=== PATIENT | male | born 1940 | race Caucasian/White ===

== ENCOUNTER → 2017-01-05 | Outpatient (CLI) | payer MEDICARE, OTHER | END | disposition home or self-care (01) | LOC: PCVCCLINIC 15:50 | PROVIDERS: ATTEND Internal Medicine | DX: I25.10 Atherosclerotic heart disease of native coronary artery without angina pectoris (principal); I48.0 Paroxysmal atrial fibrillation; E78.00 Pure hypercholesterolemia, unspecified; Z98.890 Other specified postprocedural states | CPT/HCPCS: 80061; 93005; G0463 ==

== ENCOUNTER → 2018-01-11 | Outpatient (CLI) | payer MEDICARE, OTHER | END | disposition home or self-care (01) | LOC: PCVCCLINIC 13:20 | DX: I25.10 Atherosclerotic heart disease of native coronary artery without angina pectoris (principal); I48.0 Paroxysmal atrial fibrillation; E78.00 Pure hypercholesterolemia, unspecified; E78.5 Hyperlipidemia, unspecified; Z98.890 Other specified postprocedural states; Z87.891 Personal history of nicotine dependence; Z79.899 Other long term (current) drug therapy; Z79.82 Long term (current) use of aspirin | CPT/HCPCS: 80061; 93005; G0463 ==

== ENCOUNTER → 2018-07-19 | Outpatient (CLI) | payer MEDICARE, OTHER ==
--- NOTE | 2018-07-19 14:34 | PCVCIMAG ---
APPROVED REPORT Study performed: 07/19/2018 13:21:35 EXAM: Comprehensive 2D, Doppler, and color-flow Echocardiogram Patient Location: Echo lab Status: routine BSA: 1.85 HR: 63 bpmBP: 130/70 mmHg Rhythm: Atrial Fibrillation Other Information Study Quality: Adequate 2D Dimensions IVSd: 10.59 (7-11mm) LVDd: 49.27 mm PWd: 9.33 (7-11mm)Ascending Ao: 34.66 (22-36mm) LVDs: 34.57 (25-40mm) Left Atrium: 33.04 (27-40mm) Aortic Root: 33.23 mm LV Single Plane 4CH: 51.33 % LV Single Plane 2CH: 56.81 % Biplane EF: 55.0 % Volumes Left Atrial Volume (Systole) Single Plane 4CH: 41.98 mLSingle Plane 2CH: 82.92 mL LA ESV Index: 34.00 mL/m2 Aortic Valve AoV Peak Lamonte.: 1.30 m/s AO Peak Gr.: 6.86 mmHgLVOT Max P.69 mmHg LVOT Max V: 0.95 m/s Pulmonary Valve PV Peak Lamonte.: 0.88 m/sPV Peak Gr.: 3.09 mmHg Tricuspid Valve TR Peak Lamonte.: 2.37 m/s TR Peak Gr.: 22.51 mmHg Left Ventricle The left ventricle is normal size. There is normal LV segmental wall motion. There is normal left ventricular wall thickness. Left ventricular systolic function is normal. The left ventricular ejection fraction is within the normal range. LVEF is 55-60%. This study is not technically sufficient to allow evaluation of the LV diastolic function due to atrial fibrillation. Right Ventricle The right ventricle is normal size. The right ventricular systolic function is normal. Atria Left atrium is at the upper limits of normal. Right atrium is mildly dilated. Aortic Valve The aortic valve is normal in structure. Mild aortic regurgitation. There is no aortic valvular stenosis. Mitral Valve History of mitral valve repair. Mild to moderate, eccentric mitral regurgitation. No evidence of mitral valve stenosis. Tricuspid Valve The tricuspid valve is normal in structure. Mild tricuspid regurgitation with PAP of 30 mmHg. Pulmonic Valve The pulmonary valve is normal in structure. Mild pulmonic regurgitation. Great Vessels The aortic root is normal in size. IVC is normal in size and collapses >50% with inspiration. Pericardium There is no pericardial effusion. There is no pleural effusion. <Conclusion> The left ventricle is normal size. LVEF is 55-60%. This study is not technically sufficient to allow evaluation of the LV diastolic function due to atrial fibrillation. The right ventricle is normal size. Left atrium is at the upper limits of normal. Right atrium is mildly dilated. Mild aortic regurgitation. Mild to moderate, eccentric mitral regurgitation. Mild tricuspid regurgitation with PAP of 30 mmHg. The aortic root is normal in size. There is no pericardial effusion.
== END | disposition home or self-care (01) ==
LOC: PCVCIMAG 13:16
PROVIDERS: ATTEND Internal Medicine
DX: I08.3 Combined rheumatic disorders of mitral, aortic and tricuspid valves (principal); I48.0 Paroxysmal atrial fibrillation; I25.10 Atherosclerotic heart disease of native coronary artery without angina pectoris; E78.5 Hyperlipidemia, unspecified; J44.9 Chronic obstructive pulmonary disease, unspecified; E78.00 Pure hypercholesterolemia, unspecified; Z79.82 Long term (current) use of aspirin; Z87.891 Personal history of nicotine dependence
CPT/HCPCS: 80061; 93005; 93306; G0463

== ENCOUNTER → 2019-02-03 | Outpatient (CLI) | payer MEDICARE, OTHER | END | disposition home or self-care (01) | LOC: PCVCCLINIC 14:00 | PROVIDERS: ATTEND Internal Medicine | DX: I25.10 Atherosclerotic heart disease of native coronary artery without angina pectoris (principal); I48.92 Unspecified atrial flutter; I48.0 Paroxysmal atrial fibrillation; E78.5 Hyperlipidemia, unspecified; J44.9 Chronic obstructive pulmonary disease, unspecified; Z98.890 Other specified postprocedural states; Z87.891 Personal history of nicotine dependence; Z79.82 Long term (current) use of aspirin | CPT/HCPCS: 36415; 80061; 93005; G0463 ==

== ENCOUNTER → 2019-08-11 | Outpatient (CLI) | payer MEDICARE, OTHER ==
--- NOTE | 2019-08-11 10:46 | PCVCIMAG ---
APPROVED REPORT Study performed: 08/11/2019 09:36:46 EXAM: Comprehensive 2D, Doppler, and color-flow Echocardiogram Patient Location: Echo lab Room #: 2Status: routine BSA: 1.83 HR: 56 bpmBP: 126/60 mmHg Rhythm: NSR with frequent arrhythmias Other Information Study Quality: Good Indications Aortic Valve Disease COPD Mitral Valve Disease Atrial Fibrillation CAD S/P A Flutter ablation,Perry-Maze ablation,MV repair 2D Dimensions IVSd: 9.21 (7-11mm)LVOT Diam: 24.60 (18-24mm) LVDd: 51.37 mm PWd: 8.45 (7-11mm)Ascending Ao: 31.19 (22-36mm) LVDs: 42.01 (25-40mm) Left Atrium: 36.07 (27-40mm) Aortic Root: 29.42 mm LV Single Plane 4CH: 61.93 % LV Single Plane 2CH: 55.97 % Biplane EF: 59.1 % Volumes Left Atrial Volume (Systole) Single Plane 4CH: 55.04 mLSingle Plane 2CH: 66.75 mL Biplane LA Volume: 63.00 mLLA ESV Index: 35.00 mL/m2 Aortic Valve AoV Peak Lamonte.: 1.28 m/s AO Peak Gr.: 5.74 mmHgLVOT Max P.50 mmHg AO Mean Gr.: 3.35 mmHgLVOT Mean P.59 mmHg AO V2 Mean: 0.85 m/sLVOT Max V: 0.95 m/s AO V2 VTI: 27.43 cmLVOT Mean V: 0.57 m/s DIETER (VTI): 3.58 [id number] V1 VTI: 20.66 cm DIETER Vmax: 3.52 cm2 AI Vmax: 4.39 m/sSV (LVOT): 98.16 mL AI Mccone: 1.87 m/s2 AI PHT: 705.64 ms Mitral Valve MV Peak Gr.: 5.14 mmHg MV Mean Gr.: 1.84 mmHgE/A Ratio: 2.4 MV Decel. Time: 174.74 ms MV E Max Lamonte.: 1.21 m/s MV A Lamonte.: 0.50 m/s MV Max Lamonte.: 1.13 m/s MV Mean Lamonte.: 0.61 m/s MV VTI: 333.65 mm MVA VTI: 294.18 mm2 IVRT: 62.50 ms TDI E/Lateral E': 12.10E/Medial E': 17.29 Medial E' Lamonte.: 0.07 m/s Lateral E' Lamonte.: 0.10 m/s Pulmonary Valve PV Peak Lamonte.: 0.86 m/sPV Peak Gr.: 3.03 mmHg Pulmonary Vein P Vein S: 0.28 m/sP Vein A: 0.22 m/s P Vein D: 1.04 m/sP Vein A Dur.: 83.0 msec P Vein S/D Ratio: 0.27 Tricuspid Valve TR Peak Lamonte.: 2.33 m/s TR Peak Gr.: 21.67 mmHg TV Vmax: 0.76 m/sPA Pressure: 29.00 mmHg Left Ventricle The left ventricle is normal size. There is normal LV segmental wall motion. There is normal left ventricular wall thickness. Left ventricular systolic function is normal. The left ventricular ejection fraction is within the normal range. LVEF is 55-60%. Severe diastolic dysfunction Right Ventricle The right ventricle is normal size. The right ventricular systolic function is normal. Atria Left atrium is mildly dilated. Right atrium is mildly dilated. Aortic Valve Aortic valve is trileaflet, mildly sclerotic. Mild aortic regurgitation. There is no aortic valvular stenosis. Mitral Valve Changes consistent with posterior mitral leaflet repair. Mild to moderate mitral insufficiency. No evidence of mitral valve stenosis. Tricuspid Valve The tricuspid valve is normal in structure. Mild tricuspid regurgitation with a PA pressure of 30 mmHg No apparent pulmonary hypertension.. Pulmonic Valve The pulmonary valve is normal in structure. There is no pulmonic valvular regurgitation. Great Vessels The aortic root is normal in size. The ascending aorta is normal in size. Aortic arch is normal in caliber. IVC is normal in size and collapses >50% with inspiration. Pericardium There is no pericardial effusion. There is no pleural effusion. <Conclusion> Left ventricular systolic function is normal. There is normal LV segmental wall motion. LVEF is 55-60%. Severe diastolic dysfunction Both atia are mildly dilated. Aortic valve is trileaflet, mildly sclerotic. Mild aortic regurgitation, no stenosis. Changes consistent with posterior mitral leaflet repair. Mild to moderate mitral insufficiency. Mild tricuspid regurgitation with a pulmonary artery pressure of 30 mmHg There is no pericardial effusion.
== END | disposition home or self-care (01) ==
LOC: PCVCIMAG 09:20
PROVIDERS: ATTEND Internal Medicine
DX: I25.10 Atherosclerotic heart disease of native coronary artery without angina pectoris (principal); I48.0 Paroxysmal atrial fibrillation; E78.5 Hyperlipidemia, unspecified; I45.10 Unspecified right bundle-branch block; I73.00 Raynaud's syndrome without gangrene; J44.9 Chronic obstructive pulmonary disease, unspecified; E78.00 Pure hypercholesterolemia, unspecified; I48.92 Unspecified atrial flutter; Z98.890 Other specified postprocedural states; Z82.49 Family history of ischemic heart disease and other diseases of the circulatory system; Z95.4 Presence of other heart-valve replacement; Z79.82 Long term (current) use of aspirin; Z79.899 Other long term (current) drug therapy; Z88.8 Allergy status to other drugs, medicaments and biological substances
CPT/HCPCS: 36415; 80061; 93005; 93306; G0463

== ENCOUNTER → 2019-09-01 | Outpatient (CLI) | payer MEDICARE, OTHER ==
--- NOTE | 2019-09-05 16:21 | PCVCIMAG ---
APPROVED REPORT Study performed: 09/01/2019 09:16:26 Exam: Stress Echocardiogram Indication: CAD , Mitral Valve Disease,PAF Patient Location: Echo lab Stress Nurse: Rohini Mathew RN Room #: 2 Status: routine Ht: 5 ft 9 in HR: 54 bpm BP: 122/82 mmHg Rhythm: Bradycardia Medical History Medical History: Mitral valve repair, Perry-Maze ablation, PAF Cardiac Risk Factors: Hyperlipidemia Previous Cardiac Procedures: PCI Pretest Chest Pain Characteristics: No chest pain Exercise History: Physically active Procedure The patient underwent an Exercise Stress Test using the Ang Protocol. Blood pressure, heart rate, and EKG were monitored. An Echocardiogram was performed by [employer] service technician in four stages in quad fashion. At peak stress, four selected images were obtained and placed side by side with resting images for comparison. Stress Test Details Stress Test: Exercise stress testing was performed using a Ang protocol. HR Resting HR: 54 bpmMax Heart Rate (APMHR): 140 bpm Max HR Achieved: 181 bpmTarget HR (85% APMHR): 119 bpm % of APMHR: 129 Recovery HR: 79 bpm HR response to stress: Abnormal HR response to stress- some A fib with RVR BP Resting BP: 122/82 mmHg Max BP: 162/66 mmHg Recovery BP: 134/74 mmHg BP response to stress: Normal blood pressure response to stress. ECG Resting ECG: Sinus Bradycardia Stress ECG: RBBB, transient PSVT, Freq PVCs ST Change: Non-ischemic Maximum ST Deviation: 0 mm Arrhythmia: short runs PVCs, bigeminy Recovery ECG: Sinus Rhythm, RBBB Recovery ST Change: Non-ischemic Recovery ST Deviation: 0 mm Recovery Arrhythmia: freq PVCs, 5 beats of polymorphic VT Clinical Reason for Termination: Maximal effort Stress Symptoms: none Exercise duration: 9 min 41 sec Highest Stage Achieved: Stage 4: 4.2 mph at 16% grade. Exercise capacity: 12.3 METs Overall Exercise Capacity for Age: Good Angina Score: None No complications. Stress ECG Conclusion Clinical: Non-ischemic ECG: Non-ischemic; frequent ventricular and suptraventricular ectopy. Johnson Treadmill Score is 9.0 which is Low risk. Pre-Stress Echo The resting Echocardiogram showed normal left ventricular contractility with an estimated Ejection Fraction of about 55-60%. Normal wall motion in all segments on baseline images. Post-Stress Echo The stress Echocardiogram showed normal left ventricular contractility with an estimated Ejection Fraction of about 65-70%. Hypokinesis base and mid portions of inferior wall. Clinical No clinical evidence for ischemia. Conclusion Clinical Response: Non-ischemic Exercise Capacity: Average Stress ECG Response: Indeterminant Stress Echo Images: Ischemic Abnormal stress echocardiogram with maximal exercise stress. Moderate, eccentric mitral regurgitation. Mild aortic regurgitation. No stenosis is seen. <Conclusion> Abnormal stress echocardiogram with maximal exercise stress. Moderate, eccentric mitral regurgitation. Mild aortic regurgitation. No stenosis is seen.
== END | disposition home or self-care (01) ==
LOC: PCVCIMAG 09:15
PROVIDERS: ATTEND Internal Medicine
DX: I08.0 Rheumatic disorders of both mitral and aortic valves (principal); E78.5 Hyperlipidemia, unspecified; Z88.8 Allergy status to other drugs, medicaments and biological substances
CPT/HCPCS: 93325; 93351